=== PATIENT | female | born 1960 | race Caucasian/White ===

== ENCOUNTER 2016-07-13 20:37 | Inpatient (IN) | payer OTHER ==
[~2016-07-13] VITALS: Ht 152.4 cm; Wt 50.0 kg
[~2016-07-13 20:37] MED LIST: BENZ-88 PO; BUPR100T8 PO; HYDR25CA PO; LSN25 PO; MAGN400T6 PO; METF-841 PO; NVLGI7030 SC; RANI300T2 PO; RISP4TAB2 PO; SODI1TAB PO; TPRSR/25 PO
[2016-07-13] MEDS ORDERED: SODIUM CHLORIDE 0.9% 1000ML 1,000 ML IV STA (20:57)
--- NOTE | 2016-07-13 21:02 | EMERGENCY ROOM VISIT NOTE ---
History Report prepared by Jeanne: Navin Tirado Under the Supervision of: Dr. Flaco Servin M.D. First contact with patient: 20:51 Chief Complaint: HYPERGLYCEMIA Stated Complaint: FELL,SUGAR UP, YESTERDAY History of Present Illness The patient is a 56 year old female who presents to the Emergency Room following a falling episode that occurred shortly prior to arrival. The patient states that she is currently experiencing pain in her head and notes that she hit her head during her fall. Her blood sugar was very high today as well. 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 Review of Systems See HPI for pertinent positives & negatives. A total of 10 systems reviewed and were otherwise negative. Past Medical & Surgical Medical Problems: (1) Benign hypertension (2) Bipolar disorder (3) Diabetes mellitus (4) History of vertigo (5) Parkinson's disease (6) psychiatric problems Family History Diabetes mellitus Hypertension Social History Smoking Status: Never Smoker Alcohol Use: none Drug Use: none Marital Status: Housing Status: lives with significant other Occupation Status: unemployed, disabled Current/Historical Medications Scheduled Benztropine Mesylate (Benztropine Mesylate), 1 MG PO HS Bupropion (Wellbutrin Sr), 100 MG PO DAILY Insulin Aspart 70/30 (Novolog Mix 70/30), 14 UNITS SC QAM Insulin Aspart 70/30 (Novolog Mix 70/30), 7 UNITS SC QPM Lisinopril (Lisinopril), 2.5 MG PO BID Magnesium Oxide (Mag-Ox), 800 MG PO TID Metformin HCl (Metformin HCl ER), 1,000 MG PO BID Metoprolol Succinate (Metoprolol Succinate ER), 25 MG PO BID Ranitidine Hcl (Zantac), 300 MG PO BID Sodium Chloride (Sodium Chloride), 1 GM PO BID Scheduled PRN Hydroxyzine Pamoate (Vistaril), 25 MG PO BID PRN for Anxiety Allergies Coded Allergies: Prochlorperazine (Verified Allergy, Mild, 07/13/16) Physical Exam Vital Signs Date Time Temp Pulse Resp B/P Pulse Ox O2 Delivery O2 Flow Rate FiO2 07/13/16 23:01 86 25 131/66 96 Room Air 07/13/16 22:37 77 21 96 Room Air 07/13/16 22:07 125 18 07/13/16 21:37 82 24 96 Room Air 07/13/16 21:14 86 25 134/81 96 Room Air 07/13/16 21:10 96 Room Air 07/13/16 21:07 86 07/13/16 20:41 36.5 111 18 134/81 98 Room Air Physical Exam GENERAL: Patient is chronically debilitated. HEAD: Normocephalic atraumatic EYES: Ocular movements intact pupils equal and react to light OROPHARYNX mucous membranes are moist no exudates present no erythema or edema present NECK: Supple no nuchal rigidity CHEST: Good equal expansion LUNGS: Clear and equal to auscultation CARDIAC: Normal S1 and S2 ABDOMEN: Soft nontender no guarding BACK: No CVA tenderness EXTREMITIES: No pain upon palpation normal muscle strength in all groups no clubbing cyanosis or edema NEURO: Patient is following commands is answering questions appropriately. Alert and oriented x3 Cranial Nerves 2-12 grossly intact Medical Decision & Procedures ER Provider Diagnostic Interpretation: Radiology results as stated below per my review and radiologist interpretation: SINGLE VIEW CHEST CLINICAL HISTORY: Fall. FINDINGS: An AP, portable, upright chest radiograph is compared to study dated 11/09/2015. The examination is degraded by portable technique and patient rotation. The cardiomediastinal silhouette is unremarkable. There is minimal bibasilar atelectasis. The lungs and pleural spaces are otherwise clear. No pneumothorax is seen. The skeletal structures appear osteopenic. The bony thorax is grossly intact. Calcified granulomas are noted in the left upper quadrant the abdomen. IMPRESSION: No active disease in the chest. Electronically signed by: Dell Mazariegos M.D. 07/13/2016 10:09 PM Dictated Date/Time: 07/13/2016 10:[address] SCAN OF THE BRAIN WITHOUT IV CONTRAST CLINICAL HISTORY: Fall. Change in mental status. COMPARISON STUDY: CT of the brain dated 09/17/2014. TECHNIQUE: Unenhanced axial CT scan of the brain is performed from the vertex to the skull base. Automated dose control exposure was utilized. The skull base was scanned twice due to motion artifact. CT DOSE: 691.05 mGy.cm FINDINGS: Brain parenchyma: The brain parenchyma is normal in appearance. There is no hemorrhage, mass effect, or evidence of acute territorial ischemia by CT criteria. Jack-white matter is preserved. No extra-axial fluid collection is seen. Ventricles, sulci, cisterns: Normal in configuration. Intracranial vasculature: The visualized intracranial vasculature at the skull base is normal in appearance. Calvarium: There is no depressed calvarial fracture. Soft tissues: There is a left posterior parietal scalp contusion/hematoma. Sinuses and mastoids: The visualized paranasal sinuses are clear. The mastoid air cells are well pneumatized. Orbits: The bony orbits are grossly intact. IMPRESSION: 1. No acute intracranial abnormality. 2. Left posterior parietal scalp contusion/hematoma. No depressed calvarial fracture is seen. Electronically signed by: Dell Mazariegos M.D. 07/13/2016 10:01 PM Dictated Date/Time: 07/13/2016 9:58 PM SINGLE VIEW PELVIS CLINICAL HISTORY: Fall. FINDINGS: An AP pelvic radiograph is correlated with pelvic CT dated 06/07/2015. The skeletal structures are osteopenic. There is no radiographic evidence of fracture in the hips or bony pelvis. Only minimal degenerative change is seen in the hips. Degenerative sclerosis is noted in the sacroiliac joints. Enthesophytes arise from the anterior superior iliac spine bilaterally. The overlying soft tissues are within normal limits. There is a nonobstructed abdominal bowel gas pattern. IMPRESSION: There is no radiographic evidence of fracture in the hips or bony pelvis. Electronically signed by: Dell Mazariegos M.D. 07/13/2016 10:11 PM Dictated Date/Time: 07/13/2016 10:09 PM Laboratory Results 07/13/16 21:11 Red Blood Count 4.05, Mean Corpuscular Volume 86.2, Mean Corpuscular Hemoglobin 30.9, Mean Corpuscular Hemoglobin Concent 35.8, Mean Platelet Volume 10.0, Neutrophils (%) (Auto) 61.4, Lymphocytes (%) (Auto) 26.5, Monocytes (%) (Auto) 8.9, Eosinophils (%) (Auto) 2.8, Basophils (%) (Auto) 0.3, Neutrophils # (Auto) 5.29, Lymphocytes # (Auto) 2.28, Monocytes # (Auto) 0.77, Eosinophils # (Auto) 0.24, Basophils # (Auto) 0.03 07/13/16 21:11 Test 07/13/16 20:57 07/13/16 21:11 07/13/16 21:36 Bedside Glucose 339 mg/dl (70-90) White Blood Count 8.62 K/uL (4.8-10.8) Red Blood Count 4.05 M/uL (4.2-5.4) Hemoglobin 12.5 g/dL (12.0-16.0) Hematocrit 34.9 % (37-47) Mean Corpuscular Volume 86.2 fL (80-100) Mean Corpuscular Hemoglobin 30.9 pg (25-34) Mean Corpuscular Hemoglobin Concent 35.8 g/dl (32-36) Platelet Count 302 K/uL (130-400) Mean Platelet Volume 10.0 fL (7.4-10.4) Neutrophils (%) (Auto) 61.4 % Lymphocytes (%) (Auto) 26.5 % Monocytes (%) (Auto) 8.9 % Eosinophils (%) (Auto) 2.8 % Basophils (%) (Auto) 0.3 % Neutrophils # (Auto) 5.29 K/uL (1.4-6.5) Lymphocytes # (Auto) 2.28 K/uL (1.2-3.4) Monocytes # (Auto) 0.77 K/uL (0.11-0.59) Eosinophils # (Auto) 0.24 K/uL (0-0.5) Basophils # (Auto) 0.03 K/uL (0-0.2) RDW Standard Deviation 41.5 fL (36.4-46.3) RDW Coefficient of Variation 12.9 % (11.5-14.5) Immature Granulocyte % (Auto) 0.1 % Immature Granulocyte # (Auto) 0.01 K/uL (0.00-0.02) Venous Blood pH 7.50 (7.36-7.41) Venous Blood Partial Pressure CO2 48 mmHg (38.0-50.0) Venous Blood Partial Pressure O2 24 mmHg Venous Blood HCO3 37 mmol/L Venous Blood Oxygen Saturation < 60.0 % Venous Blood Base Excess 12.0 mmol/L Estimated GFR () 48.9 Estimated GFR (Non- 42.2 BUN/Creatinine Ratio 19.9 (10-20) Calcium Level 9.0 mg/dl (8.5-10.1) Total Bilirubin 0.4 mg/dl (0.2-1) Direct Bilirubin 0.1 mg/dl (0-0.2) Aspartate Amino Transf (AST/SGOT) 25 U/L (15-37) Alanine Aminotransferase (ALT/SGPT) 29 U/L (12-78) Alkaline Phosphatase 57 U/L (45-117) Total Creatine Kinase 255 U/L (26-192) Creatine Kinase MB 1.4 ng/ml (0.5-3.6) Creatine Kinase MB Ratio 0.5 (0-3.0) Troponin I < 0.015 ng/ml (0-0.045) Total Protein 6.5 gm/dl (6.4-8.2) Albumin 3.4 gm/dl (3.4-5.0) Beta-Hydroxybutyric Acid 1.01 mg/dL (0.2-2.81) Thyroid Stimulating Hormone (TSH) 2.220 uIu/ml (0.300-4.500) Bedside Hemoglobin 13.6 g/dl (12.0-16.0) Bedside Hematocrit 40 % (37-47) Bedside Sodium 121 mEq/L (135-144) Bedside Potassium 4.5 mEq/L (3.3-5.0) Bedside Chloride 80 mEq/L (101-112) Bedside Total CO2 29 mEq/l (24-31) Anion Gap 17.0 mmol/L (16-25) Bedside Blood Urea Nitrogen 28 mg/dl (7-18) Bedside Creatinine 1.2 mg/dl (0.6-1.3) Bedside Glucose (other) 353 mg/dl (70-99) Bedside Ionized Calcium (Bailee) 1.10 mmol/l (1.12-1.32) Labs reviewed by ED physician. Medications Administered Medications (Trade) Dose Ordered Sig/Jeremias Route Start Time Stop Time Status Last Admin Dose Admin Sodium Chloride (Nss 1000ml) 1,000 ml @ 999 mls/hr Q1H1M STAT IV 07/13/16 20:57 07/13/16 21:57 DC 07/13/16 22:13 999 MLS/HR Ondansetron HCl (Zofran Inj) 4 mg STK-MED ONCE .ROUTE 07/13/16 22:15 07/13/16 22:16 DC 07/13/16 22:13 4 MG ECG Rate (beats per minute): 82 Rhythm: normal sinus Findings: no acute ischemic change, no ectopy ED Course 2053: Past medical records reviewed. The patient was evaluated in room B9. A complete history and physical examination was performed. 2056: Ordered Sodium Chloride 1000 mL @ 999 mL/hr IV. 2200: Ordered Regular Human Insulin 10 units IV. 2214: Ordered Zofran 4 mg. 2215: I placed a page for Dr. Mcgovern at this time. 2219: I discussed the case with Dr. Mcgovern at this time, he will observe the patient for further treatment. Medical Decision This is a 56-year-old female who presents emergency department unable to care for herself. The patient's yesterday from a massive GI bleed. The house was covered in blood and dark stool. The patient has a third grade level of comprehension and obviously has not bathed and months. She has not been taking her medications. Her family has brought her here for placement. Her glucose is elevated therefore she was given insulin and fluid in the emergency department. I did discuss the case with the hospitalist service who agreed to admit the patient. Patient and family were in agreement with the treatment plan. Consults Time Called: 2214 Consulting Physician: Dr. Mcgovern - [facility] [place] Hospitalist Returned Call: [phone] I discussed the case with Dr. Mcgovern at this time, he will observe the patient for further treatment. Impression Primary Impression: Weakness generalized Additional Impression: Hyperglycemia Scribe Attestation The scribe's documentation has been prepared under my direction and personally reviewed by me in its entirety. I confirm that the note above accurately reflects all work, treatment, procedures, and medical decision making performed by me. Departure Information Dispostion Being Evaluated By Hospitalist Referrals Paulino Becerril M.D. (PCP) Patient Instructions [facility] Problem Qualifiers
[2016-07-13 21:24] LABS: BASO % 0.3 %; BASO ABS # 0.03 K/uL (0-0.2); COMPLETE YES; EOS % 2.8 %; HEMATOCRIT 34.9 % (37-47); IG% 0.1 %; LYMPH % 26.5 %; LYMPH ABS # 2.28 K/uL (1.2-3.4); MEAN CELL VOLUME 86.2 fL (80-100); MEAN CORPUSCULAR HEMOGLOBIN 30.9 pg (25-34); MEAN CORPUSCULAR HGB CONC 35.8 g/dl (32-36); MONO % 8.9 %; NEUT % 61.4 %; PLATELET COUNT 302 K/uL (130-400); RED BLOOD COUNT 4.05 M/uL (4.2-5.4); WHITE BLOOD COUNT 8.62 K/uL (4.8-10.8)
[2016-07-13 21:32] LABS: VENOUS BLOOD GAS PCO2 48 mmHg (38.0-50.0); VENOUS BLOOD GAS PO2 24 mmHg
[2016-07-13 21:34] LABS: VEN BLD GAS O2 SATURATION < 60.0 %
[2016-07-13 21:41] LABS: ALT/SGPT 29 U/L (12-78); AST/SGOT 25 U/L (15-37); BLOOD UREA NITROGEN 28 mg/dl (7-18); BUN/CREATININE RATIO 19.9 (10-20); CARBON DIOXIDE 30 mmol/L (21-32); CHLORIDE 84 mmol/L (98-107); GLUCOSE 349 mg/dl (70-99); POTASSIUM 4.4 mmol/L (3.5-5.1); SODIUM 121 mmol/L (136-145)
[2016-07-13 21:51] LABS: ISTAT CREATININE 1.2 mg/dl (0.6-1.3); ISTAT HEMOGLOBIN 13.6 g/dl (12.0-16.0); ISTAT IONIZED CALCIUM 1.1 mmol/l (1.12-1.32)
[2016-07-13 21:51] LABS: ALKALINE PHOSPHATASE 57 U/L (45-117); BETA-HYDROXYBUTYRATE 1.04 mg/dL (0.2-2.81); CKMB/CK RATIO 0.5 (0-3.0)
[2016-07-13] MEDS ORDERED: NovoLIN-R INSULIN PER UNIT CHARGE IV STA (22:01)
--- NOTE | 2016-07-13 22:03 | DIAGNOSTIC IMAGING REPORT ---
CT SCAN OF THE BRAIN WITHOUT IV CONTRAST CLINICAL HISTORY: Fall. Change in mental status. COMPARISON STUDY: CT of the brain dated 09/17/2014. TECHNIQUE: Unenhanced axial CT scan of the brain is performed from the vertex to the skull base. Automated dose control exposure was utilized. The skull base was scanned twice due to motion artifact. CT DOSE: 691.05 mGy.cm FINDINGS: Brain parenchyma: The brain parenchyma is normal in appearance. There is no hemorrhage, mass effect, or evidence of acute territorial ischemia by CT criteria. Jack-white matter is preserved. No extra-axial fluid collection is seen. Ventricles, sulci, cisterns: Normal in configuration. Intracranial vasculature: The visualized intracranial vasculature at the skull base is normal in appearance. Calvarium: There is no depressed calvarial fracture. Soft tissues: There is a left posterior parietal scalp contusion/hematoma. Sinuses and mastoids: The visualized paranasal sinuses are clear. The mastoid air cells are well pneumatized. Orbits: The bony orbits are grossly intact. IMPRESSION: 1. No acute intracranial abnormality. 2. Left posterior parietal scalp contusion/hematoma. No depressed calvarial fracture is seen. Electronically signed by: Dell Mazariegos M.D. 07/13/2016 10:01 PM Dictated Date/Time: 07/13/2016 9:58 PM
--- NOTE | 2016-07-13 22:11 | DIAGNOSTIC IMAGING REPORT ---
SINGLE VIEW CHEST CLINICAL HISTORY: Fall. FINDINGS: An AP, portable, upright chest radiograph is compared to study dated 11/09/2015. The examination is degraded by portable technique and patient rotation. The cardiomediastinal silhouette is unremarkable. There is minimal bibasilar atelectasis. The lungs and pleural spaces are otherwise clear. No pneumothorax is seen. The skeletal structures appear osteopenic. The bony thorax is grossly intact. Calcified granulomas are noted in the left upper quadrant the abdomen. IMPRESSION: No active disease in the chest. Electronically signed by: Dell Mazariegos M.D. 07/13/2016 10:09 PM Dictated Date/Time: 07/13/2016 10:08 PM
--- NOTE | 2016-07-13 22:13 | DIAGNOSTIC IMAGING REPORT ---
SINGLE VIEW PELVIS CLINICAL HISTORY: Fall. FINDINGS: An AP pelvic radiograph is correlated with pelvic CT dated 06/07/2015. The skeletal structures are osteopenic. There is no radiographic evidence of fracture in the hips or bony pelvis. Only minimal degenerative change is seen in the hips. Degenerative sclerosis is noted in the sacroiliac joints. Enthesophytes arise from the anterior superior iliac spine bilaterally. The overlying soft tissues are within normal limits. There is a nonobstructed abdominal bowel gas pattern. IMPRESSION: There is no radiographic evidence of fracture in the hips or bony pelvis. Electronically signed by: Dell Mazariegos M.D. 07/13/2016 10:11 PM Dictated Date/Time: 07/13/2016 10:09 PM
[2016-07-13] MEDS ORDERED: ONDANSETRON INJ 2 MG/ML 2 ML VIAL ONE (22:15)
[2016-07-13] MEDS ORDERED: INSULIN REGULAR 10 UNITS in SYRINGE 9.9 ML IV ONE (23:00)
[2016-07-13] MEDS ORDERED: MAGNESIUM HYDROXIDE SUSP 30 ML UDC PO PRN (23:15)
[2016-07-13] MEDS ORDERED: ALUMINUM/MAGNESIUM/SIMETH (MAALOX MAX) 30 ML UDC PO PRN (23:15)
[2016-07-13] MEDS ORDERED: ACETAMINOPHEN 325 MG TAB PO PRN (23:15)
--- NOTE | 2016-07-13 23:46 | History and Physical ---
History & Physical Date & Time of Service: Jul 13, 2016 at 23:34 Chief Complaint: Fell,Sugar Up, Yesterday Primary Care Physician: Paulino Becerril M.D. History of Present Illness Source: patient 56-year-old female with past medical history of hypertension, diabetes, bipolar disorder, Parkinson's disease, other psychiatric issues presented to the ER after she had apparently sustained a fall and hit her head to a concrete floor. She states that her headache is better now but she still feels nauseous and had 1 episode of vomiting. Denies any blurriness of vision, diplopia, weakness, numbness or tingling. She states that she had felt dizzy prior to the fall but can't remember if she had lost consciousness. She denies any chest pain, palpitations, shortness of breath, abdominal pain, dysuria. Denies any pain or restricted mobility of her extremities. Past Medical/Surgical History Medical Problems: (1) Benign hypertension Status: Chronic (2) Bipolar disorder Status: Chronic (3) Diabetes mellitus Status: Chronic (4) History of vertigo Status: Chronic (5) Parkinson's disease Status: Chronic Family History Diabetes mellitus Hypertension Social History Smoking Status: Never Smoker Drug Use: none Marital Status: Housing status: lives with family, other Occupational Status: unemployed, disabled Immunizations History of Influenza Vaccine: Yes Influenza Vaccine Date: Jan 28, 2013 History of Tetanus Vaccine?: Unknown History of Pneumococcal: Unknown Pneumococcal Date: Feb 07, 2013 History of Hepatitis B Vaccine: Unknown Multi-Drug Resistant Organisms History of MDRO: No Allergies Coded Allergies: Prochlorperazine (Verified Allergy, Mild, 07/13/16) Home Medications Scheduled Benztropine Mesylate (Benztropine Mesylate), 1 MG PO HS Bupropion (Wellbutrin Sr), 100 MG PO DAILY Insulin Aspart 70/30 (Novolog Mix 70/30), 14 UNITS SC QAM Insulin Aspart 70/30 (Novolog Mix 70/30), 7 UNITS SC QPM Lisinopril (Lisinopril), 2.5 MG PO BID Magnesium Oxide (Mag-Ox), 800 MG PO TID Metformin HCl (Metformin HCl ER), 1,000 MG PO BID Metoprolol Succinate (Metoprolol Succinate ER), 25 MG PO BID Ranitidine Hcl (Zantac), 300 MG PO BID Sodium Chloride (Sodium Chloride), 1 GM PO BID Scheduled PRN Hydroxyzine Pamoate (Vistaril), 25 MG PO BID PRN for Anxiety Review of Systems Constitutional: No chills, No fever Eyes: No diplopia, No worsening of vision ENT: No hearing loss Respiratory: No cough, No shortness of breath, No sputum Cardiovascular: No chest pain Abdomen: + nausea, + vomiting, No pain Musculoskeletal: No joint pain Genitourinary - Female: No dysuria, No urinary frequency Neurologic: No numbness/tingling, No weakness Physical Exam Vital Signs Date Time Temp Pulse Resp B/P Pulse Ox O2 Delivery O2 Flow Rate FiO2 07/13/16 23:01 86 25 131/66 96 Room Air 07/13/16 22:37 77 21 96 Room Air 07/13/16 22:07 125 18 07/13/16 21:37 82 24 96 Room Air 07/13/16 21:14 86 25 134/81 96 Room Air 07/13/16 21:10 96 Room Air 07/13/16 21:07 86 07/13/16 20:41 36.5 111 18 134/81 98 Room Air General Appearance: WD/WN, no apparent distress Head: + pertinent finding (left parietal hematoma) Eyes: normal inspection ENT: normal ENT inspection, hearing grossly normal Neck: supple Respiratory/Chest: chest non-tender, lungs clear, normal breath sounds, no respiratory distress, no accessory muscle use Cardiovascular: regular rate, rhythm Abdomen/GI: normal bowel sounds, + distended, + pertinent finding (transverse scar) Extremities/Musculoskelatal: normal inspection, no pedal edema Neurologic/Psych: alert, normal mood/affect, oriented x 3 Skin: normal color Diagnostics Laboratory Results Results Past 24 Hours Test 07/13/16 20:57 07/13/16 21:11 07/13/16 21:36 Range/Units Bedside Glucose 339 70-90 mg/dl White Blood Count 8.62 4.8-10.8 K/uL Red Blood Count 4.05 4.2-5.4 M/uL Hemoglobin 12.5 12.0-16.0 g/dL Hematocrit 34.9 37-47 % Mean Corpuscular Volume 86.2 80-100 fL Mean Corpuscular Hemoglobin 30.9 25-34 pg Mean Corpuscular Hemoglobin Concent 35.8 32-36 g/dl Platelet Count 302 130-400 K/uL Mean Platelet Volume 10.0 7.4-10.4 fL Neutrophils (%) (Auto) 61.4 % Lymphocytes (%) (Auto) 26.5 % Monocytes (%) (Auto) 8.9 % Eosinophils (%) (Auto) 2.8 % Basophils (%) (Auto) 0.3 % Neutrophils # (Auto) 5.29 1.4-6.5 K/uL Lymphocytes # (Auto) 2.28 1.2-3.4 K/uL Monocytes # (Auto) 0.77 0.11-0.59 K/uL Eosinophils # (Auto) 0.24 0-0.5 K/uL Basophils # (Auto) 0.03 0-0.2 K/uL RDW Standard Deviation 41.5 36.4-46.3 fL RDW Coefficient of Variation 12.9 11.5-14.5 % Immature Granulocyte % (Auto) 0.1 % Immature Granulocyte # (Auto) 0.01 0.00-0.02 K/uL Venous Blood pH 7.50 7.36-7.41 Venous Blood Partial Pressure CO2 48 38.0-50.0 mmHg Venous Blood Partial Pressure O2 24 mmHg Venous Blood HCO3 37 mmol/L Venous Blood Oxygen Saturation < 60.0 % Venous Blood Base Excess 12.0 mmol/L Sodium Level 121 136-145 mmol/L Potassium Level 4.4 3.5-5.1 mmol/L Chloride Level 84 98-107 mmol/L Carbon Dioxide Level 30 21-32 mmol/L Anion Gap 7.0 17.0 16-25 mmol/L Blood Urea Nitrogen 28 7-18 mg/dl Creatinine 1.40 0.60-1.20 mg/dl Estimated GFR () 48.9 Estimated GFR (Non- 42.2 BUN/Creatinine Ratio 19.9 10-20 Random Glucose 349 70-99 mg/dl Calcium Level 9.0 8.5-10.1 mg/dl Total Bilirubin 0.4 0.2-1 mg/dl Direct Bilirubin 0.1 0-0.2 mg/dl Aspartate Amino Transf (AST/SGOT) 25 15-37 U/L Alanine Aminotransferase (ALT/SGPT) 29 12-78 U/L Alkaline Phosphatase 57 45-117 U/L Total Creatine Kinase 255 26-192 U/L Creatine Kinase MB 1.4 0.5-3.6 ng/ml Creatine Kinase MB Ratio 0.5 0-3.0 Troponin I < 0.015 0-0.045 ng/ml Total Protein 6.5 6.4-8.2 gm/dl Albumin 3.4 3.4-5.0 gm/dl Beta-Hydroxybutyric Acid 1.01 0.2-2.81 mg/dL Thyroid Stimulating Hormone (TSH) 2.220 0.300-4.500 uIu/ml Bedside Hemoglobin 13.6 12.0-16.0 g/dl Bedside Hematocrit 40 37-47 % Bedside Sodium 121 135-144 mEq/L Bedside Potassium 4.5 3.3-5.0 mEq/L Bedside Chloride 80 101-112 mEq/L Bedside Total CO2 29 24-31 mEq/l Bedside Blood Urea Nitrogen 28 7-18 mg/dl Bedside Creatinine 1.2 0.6-1.3 mg/dl Bedside Glucose (other) 353 70-99 mg/dl Bedside Ionized Calcium (Bailee) 1.10 1.12-1.32 mmol/l Diagnostic Radiology [~ rep ct add3]] SINGLE VIEW PELVIS CLINICAL HISTORY: Fall. FINDINGS: An AP pelvic radiograph is correlated with pelvic CT dated 06/07/2015. The skeletal structures are osteopenic. There is no radiographic evidence of fracture in the hips or bony pelvis. Only minimal degenerative change is seen in the hips. Degenerative sclerosis is noted in the sacroiliac joints. Enthesophytes arise from the anterior superior iliac spine bilaterally. The overlying soft tissues are within normal limits. There is a nonobstructed abdominal bowel gas pattern. IMPRESSION: There is no radiographic evidence of fracture in the hips or bony pelvis. ] SINGLE VIEW CHEST CLINICAL HISTORY: Fall. FINDINGS: An AP, portable, upright chest radiograph is compared to study dated 11/09/2015. The examination is degraded by portable technique and patient rotation. The cardiomediastinal silhouette is unremarkable. There is minimal bibasilar atelectasis. The lungs and pleural spaces are otherwise clear. No pneumothorax is seen. The skeletal structures appear osteopenic. The bony thorax is grossly intact. Calcified granulomas are noted in the left upper quadrant the abdomen. IMPRESSION: No active disease in the chest. [~ rep ct add3]] CT SCAN OF THE BRAIN WITHOUT IV CONTRAST CLINICAL HISTORY: Fall. Change in mental status. COMPARISON STUDY: CT of the brain dated 09/17/2014. TECHNIQUE: Unenhanced axial CT scan of the brain is performed from the vertex to the skull base. Automated dose control exposure was utilized. The skull base was scanned twice due to motion artifact. CT DOSE: 691.05 mGy.cm FINDINGS: Brain parenchyma: The brain parenchyma is normal in appearance. There is no hemorrhage, mass effect, or evidence of acute territorial ischemia by CT criteria. Jack-white matter is preserved. No extra-axial fluid collection is seen. Ventricles, sulci, cisterns: Normal in configuration. Intracranial vasculature: The visualized intracranial vasculature at the skull base is normal in appearance. Calvarium: There is no depressed calvarial fracture. Soft tissues: There is a left posterior parietal scalp contusion/hematoma. Sinuses and mastoids: The visualized paranasal sinuses are clear. The mastoid air cells are well pneumatized. Orbits: The bony orbits are grossly intact. IMPRESSION: 1. No acute intracranial abnormality. 2. Left posterior parietal scalp contusion/hematoma. No depressed calvarial fracture is seen. Impression Assessment and Plan Documented By: Quintin Mcgovern 56-year-old female with past medical history of hypertension, diabetes, bipolar disorder, Parkinson's disease, chronic hyponatremia, hypomagnesemia, other psychiatric issues presented to the ER after she had apparently sustained a fall and hit her head to a concrete floor. Fall: - Chest x-ray: No active disease in the chest. - Head CT: 1. No acute intracranial abnormality. 2. Left posterior parietal scalp contusion/hematoma. No depressed calvarial fracture is seen. - Pelvis x-ray: There is no radiographic evidence of fracture in the hips or bony pelvis. - Troponins negative - EKG: Within normal limits - Found to be hyperglycemic Hyperglycemia: - Usually takes NovoLog 70/30 14 units QAM and 7 units QPM and metformin thousand milligrams twice a day - Blood sugar at 339 - Sliding-scale insulin ordered - Monitor blood sugars - Hemoglobin A1c currently pending Chronic Hyponatremia: - Sodium at 121, corrected sodium 126 - Continue NSS and NaCl tabs 1 g twice a day Hypertension: - continue lisinopril 2.5 mg twice a day Acute kidney injury: Creatinine at 1.4 - Likely secondary to dehydration - Monitor creatinine Bipolar disorder - Continue Wellbutrin, Risperdal Parkinson disease: -Continue benztropine DVT prophylaxis: SCDs Full code Disposition: Admitted to telemetry Social : Patient's who is 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 House was apparently covered in dark stool and blood. Mental status at third-grade level of cognition. She will require placement. health services director consult Resident Physician Supervision Note: Pt seen/examined independently. I discussed the case with the resident and agree with the findings and plan as documented in the note. Any exceptions or clarifications are listed here: 56 y/o F with Hx MR - recently - was primary metal treater. Presents following a fall however per EMS and family, she is incapable of caring for herself and her house was in an uninhabitable state. She was hyperglycemic and dehydrated with ARF - possibly due to inability to comply with meds. O/E AAO x 2 S1,2 R CTA NT, ND No CCE P: Correct Glu Aggressive IVF Consult social work for placement Level of Care Telemetry Resuscitation Status FULL RESUSCITATION VTE Prophylaxis VTE Risk Assessment Done? Y/N: Yes Risk Level: Moderate Given or contraindicated: SCD's Resident Tracking Resident Involvement: Resident Care Provided Care Provided: Adult Hospital Medicine
[2016-07-14] VITALS (9 sets, daily range): BP systolic 102–151; BP diastolic 58–108; PULSE 77–106; TEMP 36.8–37.4; O2SAT 92–95; Ht 152.4 cm; Wt 50.0 kg
[2016-07-14] MEDS ORDERED: GLUCOSE 40% GEL 15 GM TUBE PO PRN (00:15)
[2016-07-14] MEDS ORDERED: GLUCAGON FOR INJ 1 MG VIAL SQ PRN (00:15)
[2016-07-14] MEDS ORDERED: GLUCOSE 10 TABS/TUBE PO PRN (00:15)
[2016-07-14] MEDS ORDERED: DEXTROSE 50% 50 ML SYR IV PRN (00:15)
[2016-07-14] MEDS ORDERED: INSULIN GLARGINE SOLOSTAR 100 UNITS/ML 3 ML PEN SC ONE ×2 (01:00→09:00)
[2016-07-14] MEDS ORDERED: hydrOXYzine HCL 25 MG TAB PO PRN (01:00)
[2016-07-14] MEDS ORDERED: PHARMACY GLYCEMIC MGMT CONSULT PRN (01:00)
[2016-07-14 01:04] LABS: MAGNESIUM 1.9 mg/dl (1.8-2.4)
[2016-07-14] MEDS: SODIUM CHLORIDE 0.9% 1000ML 1,000 ML IV SCH ×3 (01:08→21:19)
[2016-07-14] MEDS: ONDANSETRON INJ 2 MG/ML 2 ML VIAL IV PRN ×2 (02:32→13:02)
[2016-07-14] MEDS: INSULIN ASPART 100 UNITS/ML 3 ML PEN SC SCH ×5 (02:51→21:18)
[2016-07-14 06:05] LABS: BASO % 0.3 %; BASO ABS # 0.03 K/uL (0-0.2); COMPLETE YES; EOS % 5.1 %; HEMATOCRIT 32.8 % (37-47); IG% 0.2 %; LYMPH % 19.7 %; LYMPH ABS # 1.98 K/uL (1.2-3.4); MEAN CELL VOLUME 87.5 fL (80-100); MEAN CORPUSCULAR HEMOGLOBIN 32.8 pg (25-34); MEAN CORPUSCULAR HGB CONC 37.5 g/dl (32-36); MEAN PLATELET VOLUME 10.6 fL (7.4-10.4); MONO % 8.1 %; NEUT % 66.6 %; PLATELET COUNT 294 K/uL (130-400); RED BLOOD COUNT 3.75 M/uL (4.2-5.4); WHITE BLOOD COUNT 10.04 K/uL (4.8-10.8)
[2016-07-14 06:30] LABS: BUN/CREATININE RATIO 23.1 (10-20); CALCIUM 8.4 mg/dl (8.5-10.1); CREATININE 1.1 mg/dl (0.60-1.20); MAGNESIUM 1.8 mg/dl (1.8-2.4)
[2016-07-14] MEDS: NYSTATIN OINT 15 GM TUBE EXT SCH ×3 (07:35→15:23)
[2016-07-14] MEDS: SODIUM CHLORIDE 1 GM TAB PO SCH ×2 (07:36→21:00)
[2016-07-14] MEDS: RANITIDINE HCL 150 MG TAB PO SCH ×2 (07:36→20:59)
[2016-07-14] MEDS: MAGNESIUM OXIDE 400 MG TAB PO SCH ×3 (07:36→20:59)
[2016-07-14] MEDS: BuPROPion SR 100 MG TABCR PO SCH (07:37)
[2016-07-14] MEDS: METOPROLOL SUCC 25MG EXT REL TAB PO SCH ×2 (07:38→21:00)
[2016-07-14 08:22] LABS: ESTIMATED AVERAGE GLUCOSE 237 mg/dl; HA1C FLAG Normal (Normal)
[2016-07-14] MEDS: LISINOPRIL 2.5 MG TAB PO SCH ×2 (10:10→21:00)
--- NOTE | 2016-07-14 14:46 | Pharmacy Progress Note ---
Glycemic Control Intl Consult Date of Service Jul 14, 2016. Scope Glycemic Pharmacist consulted by Dr Mejias on 07/14/2016 for glycemic control and to write orders per [facility] inpatient glycemic control protocol Objective Weight (Kilograms): 49.600 Accuchecks BSG (last 24hrs): Test 07/13/16 20:57 07/13/16 21:11 07/14/16 00:55 07/14/16 02:49 Bedside Glucose 339 mg/dl (70-90) 161 mg/dl (70-90) 157 mg/dl (70-90) Random Glucose 349 mg/dl (70-99) Test 07/14/16 05:25 07/14/16 06:46 Random Glucose 202 mg/dl (70-99) Bedside Glucose 198 mg/dl (70-90) Laboratory Data (last 24hrs) Test 07/13/16 21:11 07/13/16 21:36 07/14/16 05:25 Anion Gap 7.0 mmol/L 17.0 mmol/L 9.0 mmol/L BUN/Creatinine Ratio 19.9 23.1 Blood Urea Nitrogen 28 mg/dl 25 mg/dl Creatinine 1.40 mg/dl 1.10 mg/dl Hemoglobin A1c 9.9 % Potassium Level 4.4 mmol/L 4.0 mmol/L Sodium Level 121 mmol/L 128 mmol/L White Blood Count 8.62 K/uL 10.04 K/uL Red Blood Count 4.05 M/uL 3.75 M/uL Hemoglobin 12.5 g/dL 12.3 g/dL Hematocrit 34.9 % 32.8 % Mean Corpuscular Volume 86.2 fL 87.5 fL Mean Corpuscular Hemoglobin 30.9 pg 32.8 pg Mean Corpuscular Hemoglobin Concent 35.8 g/dl 37.5 g/dl Platelet Count 302 K/uL 294 K/uL Mean Platelet Volume 10.0 fL 10.6 fL Neutrophils (%) (Auto) 61.4 % 66.6 % Lymphocytes (%) (Auto) 26.5 % 19.7 % Monocytes (%) (Auto) 8.9 % 8.1 % Eosinophils (%) (Auto) 2.8 % 5.1 % Basophils (%) (Auto) 0.3 % 0.3 % Neutrophils # (Auto) 5.29 K/uL 6.69 K/uL Lymphocytes # (Auto) 2.28 K/uL 1.98 K/uL Monocytes # (Auto) 0.77 K/uL 0.81 K/uL Eosinophils # (Auto) 0.24 K/uL 0.51 K/uL Basophils # (Auto) 0.03 K/uL 0.03 K/uL HbA1c Test 07/13/16 21:11 Hemoglobin A1c 9.9 % (4.5-5.6) H Recent Pertinent Medications Outpatient Anti-diabetic Regimen: * Novolog 70/30 14 units in AM and 7 units in PM (unsure when last taken) Risk Factors for Insulin Resistance: * Diet: type 2 diabetic diet Assessment & Plan ASSESSMENT: * ADA & AACE recommend a goal blood sugar range 140-180 mg/dl for the majority of critically ill & non-critically ill patients. However, more stringent targets may be selected in individual cases. 07/14/2016 * Ms Jimenez was admitted overnight after a fall plus emesis. The patient is a poor historian and therefore it is unknown when she last took her insulin or what dose was taken. * She received a 1 time dose of Regular insulin 10 units IV around 2300 and then Lantus 5 units at 0115. Her blood sugars have decreased nicely from 349 mg/ dL on admission to 198 mg/dL this morning. * The patient's blood sugars appear reasonably controlled as an outpatient therefore will give Lantus 5 units x 1 to make Lantus 10 units this morning and start Lantus 10 units every morning (mimics a total basal dose of 15 units daily with a small reduction for hospital admission) plus a Lantus dose of 0-5 units qHS if necessary. A stricter carbohydrate ratio and correction factor are being utilized to see how the patient responds while hospitalized with a higher goal range to prevent any hypoglycemia. PLAN FOR INPATIENT GLYCEMIC CONTROL: * Holding outpatient oral diabetes medications * Basal insulin with LANTUS 10 units SQ AM plus Lantus 0-5 units qHS (5 units if blood sugar greater than or equal to 180 mg/dL) * Correctional Insulin with NOVOLOG per scale ACHS * Goal Range: Low 140 mg/dL - High 180 mg/dL * Correction Factor: 30 mg/dL/unit * Nutritional / Prandial insulin per carb ratio of 1 unit per 10 grams CHO consumed * Please note that the plan above was derived based on current level of insulin resistance and hospital stress. These recommendations are appropriate for inpatient admission only. Plan of care upon discharge will need to be reassessed to avoid potential outpatient hypo/hyperglycemia. Thank you.
--- NOTE | 2016-07-14 17:50 | Hospitalist Progress Note ---
Hospitalist Progress Note Date of Service Jul 14, 2016. Subjective Pt evaluation today including: conversation w/ patient, chart review, lab review Pain: 0 patient lost her a few days earlier. No other complaints Objective Vital Signs Date Time Temp Pulse Resp B/P Pulse Ox O2 Delivery O2 Flow Rate FiO2 07/14/16 17:34 Room Air 07/14/16 15:06 36.8 77 20 131/84 95 Room Air 07/14/16 13:00 Room Air 07/14/16 12:54 37.0 88 16 116/75 92 Room Air 07/14/16 12:46 37.4 90 20 95 07/14/16 12:00 Room Air 07/14/16 11:33 37.4 99 20 137/89 95 Room Air 07/14/16 08:00 Room Air 07/14/16 07:28 37.2 106 20 102/91 94 Room Air 07/14/16 04:17 137/86 07/14/16 04:00 95 Room Air 07/14/16 02:50 37.2 83 18 151/108 95 Room Air 07/14/16 01:08 37.1 82 20 109/58 95 Room Air 07/14/16 00:15 85 20 129/75 95 Room Air 07/13/16 23:50 78 24 131/66 96 Room Air 07/13/16 23:01 86 25 131/66 96 Room Air 07/13/16 22:37 77 21 96 Room Air 07/13/16 22:07 125 18 07/13/16 21:37 82 24 96 Room Air 07/13/16 21:14 86 25 134/81 96 Room Air 07/13/16 21:10 96 Room Air 07/13/16 21:07 86 07/13/16 20:41 36.5 111 18 134/81 98 Room Air Physical Exam General Appearance: no apparent distress Eyes: normal inspection ENT: normal ENT inspection, hearing grossly normal Neck: trachea midline Respiratory/Chest: lungs clear Cardiovascular: regular rate, rhythm Abdomen: normal bowel sounds, non tender, soft Neurologic/Psychiatric: alert Laboratory Results Last 24 Hours Test 07/13/16 20:57 07/13/16 21:11 07/13/16 21:36 07/13/16 23:44 Bedside Glucose 339 mg/dl 305 mg/dl White Blood Count 8.62 K/uL Red Blood Count 4.05 M/uL Hemoglobin 12.5 g/dL Hematocrit 34.9 % Mean Corpuscular Volume 86.2 fL Mean Corpuscular Hemoglobin 30.9 pg Mean Corpuscular Hemoglobin Concent 35.8 g/dl Platelet Count 302 K/uL Mean Platelet Volume 10.0 fL Neutrophils (%) (Auto) 61.4 % Lymphocytes (%) (Auto) 26.5 % Monocytes (%) (Auto) 8.9 % Eosinophils (%) (Auto) 2.8 % Basophils (%) (Auto) 0.3 % Neutrophils # (Auto) 5.29 K/uL Lymphocytes # (Auto) 2.28 K/uL Monocytes # (Auto) 0.77 K/uL Eosinophils # (Auto) 0.24 K/uL Basophils # (Auto) 0.03 K/uL RDW Standard Deviation 41.5 fL RDW Coefficient of Variation 12.9 % Immature Granulocyte % (Auto) 0.1 % Immature Granulocyte # (Auto) 0.01 K/uL Venous Blood pH 7.50 Venous Blood Partial Pressure CO2 48 mmHg Venous Blood Partial Pressure O2 24 mmHg Venous Blood HCO3 37 mmol/L Venous Blood Oxygen Saturation < 60.0 % Venous Blood Base Excess 12.0 mmol/L Sodium Level 121 mmol/L Potassium Level 4.4 mmol/L Chloride Level 84 mmol/L Carbon Dioxide Level 30 mmol/L Anion Gap 7.0 mmol/L 17.0 mmol/L Blood Urea Nitrogen 28 mg/dl Creatinine 1.40 mg/dl Estimated GFR () 48.9 Estimated GFR (Non- 42.2 BUN/Creatinine Ratio 19.9 Random Glucose 349 mg/dl Estimated Average Glucose 237 mg/dl Hemoglobin A1c 9.9 % Calcium Level 9.0 mg/dl Magnesium Level 1.9 mg/dl Total Bilirubin 0.4 mg/dl Direct Bilirubin 0.1 mg/dl Aspartate Amino Transf (AST/SGOT) 25 U/L Alanine Aminotransferase (ALT/SGPT) 29 U/L Alkaline Phosphatase 57 U/L Total Creatine Kinase 255 U/L Creatine Kinase MB 1.4 ng/ml Creatine Kinase MB Ratio 0.5 Troponin I < 0.015 ng/ml Total Protein 6.5 gm/dl Albumin 3.4 gm/dl Beta-Hydroxybutyric Acid 1.01 mg/dL Thyroid Stimulating Hormone (TSH) 2.220 uIu/ml Bedside Hemoglobin 13.6 g/dl Bedside Hematocrit 40 % Bedside Sodium 121 mEq/L Bedside Potassium 4.5 mEq/L Bedside Chloride 80 mEq/L Bedside Total CO2 29 mEq/l Bedside Blood Urea Nitrogen 28 mg/dl Bedside Creatinine 1.2 mg/dl Bedside Glucose (other) 353 mg/dl Bedside Ionized Calcium (Bailee) 1.10 mmol/l Test 07/14/16 00:55 07/14/16 02:49 07/14/16 05:25 07/14/16 06:46 Bedside Glucose 161 mg/dl 157 mg/dl 198 mg/dl White Blood Count 10.04 K/uL Red Blood Count 3.75 M/uL Hemoglobin 12.3 g/dL Hematocrit 32.8 % Mean Corpuscular Volume 87.5 fL Mean Corpuscular Hemoglobin 32.8 pg Mean Corpuscular Hemoglobin Concent 37.5 g/dl Platelet Count 294 K/uL Mean Platelet Volume 10.6 fL Neutrophils (%) (Auto) 66.6 % Lymphocytes (%) (Auto) 19.7 % Monocytes (%) (Auto) 8.1 % Eosinophils (%) (Auto) 5.1 % Basophils (%) (Auto) 0.3 % Neutrophils # (Auto) 6.69 K/uL Lymphocytes # (Auto) 1.98 K/uL Monocytes # (Auto) 0.81 K/uL Eosinophils # (Auto) 0.51 K/uL Basophils # (Auto) 0.03 K/uL RDW Standard Deviation 42.6 fL RDW Coefficient of Variation 13.1 % Immature Granulocyte % (Auto) 0.2 % Immature Granulocyte # (Auto) 0.02 K/uL Sodium Level 128 mmol/L Potassium Level 4.0 mmol/L Chloride Level 92 mmol/L Carbon Dioxide Level 27 mmol/L Anion Gap 9.0 mmol/L Blood Urea Nitrogen 25 mg/dl Creatinine 1.10 mg/dl Est Creatinine Clear Calc Drug Dose 41.5 ml/min Estimated GFR () 65.5 Estimated GFR (Non- 56.5 BUN/Creatinine Ratio 23.1 Random Glucose 202 mg/dl Calcium Level 8.4 mg/dl Magnesium Level 1.8 mg/dl Hepatitis C Antibody Screen NEG Test 07/14/16 11:31 Bedside Glucose 258 mg/dl Assessment and Plan (1) Fall Assessment & Plan: will need short term rehab will consult pt/ot (2) Hyperglycemia Assessment & Plan: pharmacy input appreciated (3) Hypomagnesemia (4) Poorly controlled diabetes mellitus (5) Dehydration Discharge planning: retirement facility
[2016-07-14] MEDS ORDERED: INSULIN GLARGINE SOLOSTAR 100 UNITS/ML 3 ML PEN SC SCH (21:00)
[2016-07-14] MEDS: BENZTROPINE MESYLATE 1 MG TAB PO SCH (21:00)
[2016-07-15 00:20] VITALS: BP 116/75; PULSE 77; TEMP 36.8; O2SAT 95
[2016-07-15] MEDS: SODIUM CHLORIDE 0.9% 1000ML 1,000 ML IV SCH (06:08)
[2016-07-15 06:39] LABS: HEMATOCRIT 30.2 % (37-47); MEAN CELL VOLUME 89.6 fL (80-100); MEAN CORPUSCULAR HEMOGLOBIN 31.5 pg (25-34); MEAN CORPUSCULAR HGB CONC 35.1 g/dl (32-36); MEAN PLATELET VOLUME 10.3 fL (7.4-10.4); PLATELET COUNT 264 K/uL (130-400); RED BLOOD COUNT 3.37 M/uL (4.2-5.4); WHITE BLOOD COUNT 7.19 K/uL (4.8-10.8)
[2016-07-15 07:04] VITALS: BP 135/79; PULSE 56; TEMP 36.7; O2SAT 98
[2016-07-15 07:10] LABS: BUN/CREATININE RATIO 19.9 (10-20); CALCIUM 8.3 mg/dl (8.5-10.1); CREATININE 1.1 mg/dl (0.60-1.20); POTASSIUM 4.2 mmol/L (3.5-5.1)
[2016-07-15] MEDS: NYSTATIN OINT 15 GM TUBE EXT SCH ×3 (07:54→18:01)
[2016-07-15] MEDS: INSULIN ASPART 100 UNITS/ML 3 ML PEN SC SCH ×4 (07:58→20:50)
[2016-07-15] MEDS: INSULIN GLARGINE SOLOSTAR 100 UNITS/ML 3 ML PEN SC SCH (07:59)
[2016-07-15 08:32] VITALS: BP 103/66; PULSE 75
[2016-07-15] MEDS: LISINOPRIL 2.5 MG TAB PO SCH ×2 (09:05→21:25)
[2016-07-15] MEDS: METOPROLOL SUCC 25MG EXT REL TAB PO SCH ×2 (09:05→21:25)
[2016-07-15] MEDS: RANITIDINE HCL 150 MG TAB PO SCH ×2 (09:05→21:25)
[2016-07-15] MEDS: BuPROPion SR 100 MG TABCR PO SCH (09:05)
[2016-07-15] MEDS: SODIUM CHLORIDE 1 GM TAB PO SCH ×2 (09:05→21:24)
[2016-07-15] MEDS: MAGNESIUM OXIDE 400 MG TAB PO SCH ×3 (09:06→21:24)
--- NOTE | 2016-07-15 10:19 | Hospitalist Progress Note ---
Hospitalist Progress Note Date of Service Jul 15, 2016. Subjective Pt evaluation today including: conversation w/ patient Pain: 0 patient states she has to go to [facility] for rehab All Other Systems: Reviewed and Negative Medications Medications (Trade) Dose Ordered Sig/Jeremias Route Start Time Stop Time Status Last Admin Dose Admin Benztropine Mesylate (Cogentin Tab) 1 mg HS PO 07/14/16 21:00 08/13/16 20:59 07/14/16 21:00 1 MG Insulin Glargine (Lantus Solostar Pen) 10 unit DAILY SC 07/15/16 09:00 08/14/16 08:59 07/15/16 07:59 10 UNIT Objective Vital Signs Date Time Temp Pulse Resp B/P Pulse Ox O2 Delivery O2 Flow Rate FiO2 07/15/16 08:32 75 103/66 07/15/16 08:10 Room Air 07/15/16 07:04 36.7 56 20 135/79 98 Room Air 07/15/16 00:20 36.8 77 18 116/75 95 Room Air 07/15/16 00:00 Room Air 07/14/16 17:34 Room Air 07/14/16 15:06 36.8 77 20 131/84 95 Room Air 07/14/16 13:00 Room Air 07/14/16 12:54 37.0 88 16 116/75 92 Room Air 07/14/16 12:46 37.4 90 20 95 07/14/16 12:00 Room Air 07/14/16 11:33 37.4 99 20 137/89 95 Room Air Physical Exam General Appearance: WD/WN, no apparent distress Eyes: normal inspection ENT: hearing grossly normal Neck: trachea midline Respiratory/Chest: lungs clear Cardiovascular: regular rate, rhythm Abdomen: normal bowel sounds Neurologic/Psychiatric: alert Laboratory Results Last 24 Hours Test 07/14/16 11:31 07/14/16 16:33 07/14/16 20:54 07/15/16 06:05 Bedside Glucose 258 mg/dl 117 mg/dl 211 mg/dl White Blood Count 7.19 K/uL Red Blood Count 3.37 M/uL Hemoglobin 10.6 g/dL Hematocrit 30.2 % Mean Corpuscular Volume 89.6 fL Mean Corpuscular Hemoglobin 31.5 pg Mean Corpuscular Hemoglobin Concent 35.1 g/dl RDW Standard Deviation 43.4 fL RDW Coefficient of Variation 13.2 % Platelet Count 264 K/uL Mean Platelet Volume 10.3 fL Sodium Level 132 mmol/L Potassium Level 4.2 mmol/L Chloride Level 97 mmol/L Carbon Dioxide Level 30 mmol/L Anion Gap 5.0 mmol/L Blood Urea Nitrogen 22 mg/dl Creatinine 1.10 mg/dl Est Creatinine Clear Calc Drug Dose 41.5 ml/min Estimated GFR () 65.5 Estimated GFR (Non- 56.5 BUN/Creatinine Ratio 19.9 Random Glucose 156 mg/dl Calcium Level 8.3 mg/dl Test 07/15/16 07:33 Bedside Glucose 160 mg/dl Assessment and Plan (1) Fall Assessment & Plan: Resolved will go for str once bed available (2) Hyperglycemia Assessment & Plan: resolved (3) Hypomagnesemia (4) Poorly controlled diabetes mellitus (5) Dehydration Assessment & Plan: resolved will heplock iv Discharge planning: alf facility
--- NOTE | 2016-07-15 13:59 | Pharmacy Progress Note ---
Glycemic Control: Progress Nt Date of Service Jul 15, 2016. Scope Glycemic Pharmacist consulted by Dr Mejias on 07/14/16 for glycemic control and to write orders per [facility] inpatient glycemic control protocol. Objective Accuchecks BSG (last 24hrs): Test 07/14/16 16:33 07/14/16 20:54 07/15/16 06:05 07/15/16 07:33 Bedside Glucose 117 mg/dl (70-90) 211 mg/dl (70-90) 160 mg/dl (70-90) Random Glucose 156 mg/dl (70-99) HbA1c: Test 07/13/16 21:11 Hemoglobin A1c 9.9 % (4.5-5.6) H Recent Pertinent Medications Outpatient Anti-diabetic Regimen: * Novolog 70/30 pre-mixed insulin 14 units with morning meal & 7 units with PM meal * Metformin 1,000mg PO BIDM The patient is currently receiving: * Basal insulin: Lantus 10 units every 24 hours given in the morning * Correctional Insulin: Novolog Correction per scale ACHS Goal Range: Low 140 mg/dL - High 180 mg/dL Correction Factor: 30 mg/dL/unit * Prandial insulin: Per carb ratio of 1 unit per 10 grams CHO consumed * Oral Agents: on hold for admissions Risk Factors for Insulin Resistance: * Minimal other than baseline poor control per elevated A1c Assessment & Plan ASSESSMENT: * Patient is currently receiving an average of ~22 units of insulin per day * 10 units of basal insulin * 12 units of prandial/correctional insulin * BSGs ranging 117 - 258mg/dl over the past 24hrs * Anticipating insulin regimen may need adjusted * AM Fasting BSG = 160mg/dl, this is above goal range but it is trending downwards from yesterday so hesitant to increase at this time * Post-prandial BSGs are elevated/BSGs rise throughout the day therefore CF/ CR may need tightened, however, BSG drops into goal range after large NovoLog bolus when BSG is elevated. Safer option would be to lower goal range for added CF insulin to be given when BSG above goal range * ADA & AACE recommend a goal blood sugar range 140-180 mg/dl for the majority of critically ill & non-critically ill patients. However, more stringent targets may be selected in individual cases. Will utilize more stringent goal of 110-140mg/dl based on patient age & comorbidities. PLAN FOR INPATIENT GLYCEMIC CONTROL: * Hold outpatient oral diabetes medications * Continue Basal insulin with LANTUS 10 units SQ Daily in AM * NovoLog per scale ACHS or Q6hrs while NPO * LOWER Goal Range: Low 110 mg/dL - High 140 mg/dL * Correction Factor: 30 mg/dL/unit * Nutritional / Prandial insulin per carb ratio of 1 unit per 10 grams CHO consumed * Please note that the plan above was derived based on current level of insulin resistance and hospital stress. These recommendations are appropriate for inpatient admission only. Plan of care upon discharge will need to be reassessed to avoid potential outpatient hypo/hyperglycemia. Thank you.
[2016-07-15 14:58] VITALS: BP 103/69; PULSE 71; TEMP 37.1; O2SAT 96
[2016-07-15 16:00] VITALS: O2SAT 96
[2016-07-15 21:20] VITALS: BP 119/75; PULSE 71
[2016-07-15] MEDS: BENZTROPINE MESYLATE 1 MG TAB PO SCH (21:24)
[2016-07-16 00:40] VITALS: BP 129/80; PULSE 84; TEMP 36.7; O2SAT 96
[2016-07-16 07:10] LABS: HEMATOCRIT 34.4 % (37-47); MEAN CORPUSCULAR HEMOGLOBIN 31.2 pg (25-34); MEAN CORPUSCULAR HGB CONC 34.3 g/dl (32-36); MEAN PLATELET VOLUME 10.5 fL (7.4-10.4); PLATELET COUNT 319 K/uL (130-400); RED BLOOD COUNT 3.78 M/uL (4.2-5.4); WHITE BLOOD COUNT 9.49 K/uL (4.8-10.8)
[2016-07-16 07:30] VITALS: BP 126/76; PULSE 72; TEMP 36.7; O2SAT 93
[2016-07-16 07:50] LABS: CALCIUM 8.4 mg/dl (8.5-10.1); CREATININE 1.1 mg/dl (0.60-1.20); POTASSIUM 4.2 mmol/L (3.5-5.1)
[2016-07-16] MEDS: RANITIDINE HCL 150 MG TAB PO SCH ×2 (08:22→21:47)
[2016-07-16] MEDS: BuPROPion SR 100 MG TABCR PO SCH (08:22)
[2016-07-16] MEDS: METOPROLOL SUCC 25MG EXT REL TAB PO SCH ×2 (08:22→21:48)
[2016-07-16] MEDS: SODIUM CHLORIDE 1 GM TAB PO SCH ×2 (08:23→21:47)
[2016-07-16] MEDS: MAGNESIUM OXIDE 400 MG TAB PO SCH ×3 (08:23→21:49)
[2016-07-16] MEDS: LISINOPRIL 2.5 MG TAB PO SCH ×2 (08:23→21:47)
[2016-07-16] MEDS: NYSTATIN OINT 15 GM TUBE EXT SCH ×3 (08:24→17:17)
[2016-07-16] MEDS: INSULIN GLARGINE SOLOSTAR 100 UNITS/ML 3 ML PEN SC SCH (08:26)
[2016-07-16] MEDS: INSULIN ASPART 100 UNITS/ML 3 ML PEN SC SCH ×4 (08:26→21:56)
[2016-07-16] MEDS ORDERED: METFORMIN HCL 500 MG TABCR PO ONE (08:45)
--- NOTE | 2016-07-16 12:33 | Pharmacy Progress Note ---
Glycemic Control: Progress Nt Date of Service Jul 16, 2016. Scope Glycemic Pharmacist consulted by Dr Mejias on 07/14/2016 for glycemic control and to write orders per [facility] inpatient glycemic control protocol. Objective Accuchecks BSG (last 24hrs): Test 07/15/16 16:39 07/15/16 20:09 07/15/16 21:34 07/15/16 22:00 Bedside Glucose 210 mg/dl (70-90) 102 mg/dl (70-90) 82 mg/dl (70-90) 73 mg/dl (70-90) Test 07/15/16 22:35 07/16/16 00:12 07/16/16 06:26 07/16/16 07:43 Bedside Glucose 87 mg/dl (70-90) 149 mg/dl (70-90) 189 mg/dl (70-90) Random Glucose 163 mg/dl (70-99) Test 07/16/16 11:12 Bedside Glucose 211 mg/dl (70-90) Laboratory Data (last 24hrs) Test 07/16/16 06:26 Anion Gap 8.0 mmol/L BUN/Creatinine Ratio 23.0 Blood Urea Nitrogen 25 mg/dl Creatinine 1.10 mg/dl Potassium Level 4.2 mmol/L Sodium Level 132 mmol/L White Blood Count 9.49 K/uL HbA1c: Test 07/13/16 21:11 Hemoglobin A1c 9.9 % (4.5-5.6) H Recent Pertinent Medications Outpatient Anti-diabetic Regimen: * Novolog 70/30 14 units in AM and 7 units in PM (unsure when last taken) Risk Factors for Insulin Resistance: * Diet: type 2 diabetic diet Assessment & Plan ASSESSMENT: * ADA & AACE recommend a goal blood sugar range 140-180 mg/dl for the majority of critically ill & non-critically ill patients. However, more stringent targets may be selected in individual cases. 07/14/2016 * Ms Jimenez was admitted overnight after a fall plus emesis. The patient is a poor historian and therefore it is unknown when she last took her insulin or what dose was taken. * She received a 1 time dose of Regular insulin 10 units IV around 2300 and then Lantus 5 units at 0115. Her blood sugars have decreased nicely from 349 mg/ dL on admission to 198 mg/dL this morning. * The patient's blood sugars appear reasonably controlled as an outpatient therefore will give Lantus 5 units x 1 to make Lantus 10 units this morning and start Lantus 10 units every morning (mimics a total basal dose of 15 units daily with a small reduction for hospital admission) plus a Lantus dose of 0-5 units qHS if necessary. A stricter carbohydrate ratio and correction factor are being utilized to see how the patient responds while hospitalized with a higher goal range to prevent any hypoglycemia. 07/16/2016 * Ms Jimenez had lower blood sugars overnight last night. She had blood sugars of 102 mg/dL --> 82 mg/dL (treated with OJ, recheck in 15 mins) --> 76 mg/dL ( reid aidan, PB, milk, , recheck in 15 mins) --> 87 mg/dL (recheck in 15 mins) --> 163 mg/dL * The patient's fasting blood sugars have remained steady around 170 mg/dL. The lower blood sugars indicate that the correction factor and carbohydrate ratio need to be loosened. The goal range will be tightened to insure higher blood sugars do not happen. * Since the patient is preparing for discharge will restart metformin. The effects of this should be seen in several days. PLAN FOR INPATIENT GLYCEMIC CONTROL: * Holding outpatient oral diabetes medications * Basal insulin with LANTUS 10 units SQ AM * Correctional Insulin with NOVOLOG per scale ACHS * TIGHTEN Goal Range: Low 110 mg/dL - High 140 mg/dL * TIGHTEN Correction Factor: 40 mg/dL/unit * TIGHTEN Nutritional / Prandial insulin per carb ratio of 1 unit per 13 grams CHO consumed * Please note that the plan above was derived based on current level of insulin resistance and hospital stress. These recommendations are appropriate for inpatient admission only. Plan of care upon discharge will need to be reassessed to avoid potential outpatient hypo/hyperglycemia. Thank you.
[2016-07-16 15:30] VITALS: BP 112/72; PULSE 126; TEMP 37; O2SAT 94
[2016-07-16 16:00] VITALS: O2SAT 92
[2016-07-16 16:30] VITALS: PULSE 76
[2016-07-16] MEDS: METFORMIN HCL 500 MG TABCR PO SCH (17:17)
--- NOTE | 2016-07-16 20:23 | Hospitalist Progress Note ---
Hospitalist Progress Note Date of Service Jul 16, 2016. Subjective Pt evaluation today including: conversation w/ patient, conversation w/ family , physical exam Pain: 0 no complaints got her iv out All Other Systems: Reviewed and Negative Objective Vital Signs Date Time Temp Pulse Resp B/P Pulse Ox O2 Delivery O2 Flow Rate FiO2 07/16/16 16:30 76 07/16/16 16:00 92 Room Air 07/16/16 15:30 37.0 126 20 112/72 94 Room Air 07/16/16 08:00 Room Air 07/16/16 07:30 36.7 72 16 126/76 93 Room Air 07/16/16 00:40 36.7 84 20 129/80 96 Room Air 07/16/16 00:00 Room Air 07/15/16 21:20 71 119/75 Physical Exam General Appearance: no apparent distress Eyes: sclerae normal Neck: trachea midline Respiratory/Chest: lungs clear, normal breath sounds Cardiovascular: regular rate, rhythm Abdomen: normal bowel sounds Laboratory Results Last 24 Hours Test 07/15/16 21:34 07/15/16 22:00 07/15/16 22:35 07/16/16 00:12 Bedside Glucose 82 mg/dl 73 mg/dl 87 mg/dl 149 mg/dl Test 07/16/16 06:26 07/16/16 07:43 07/16/16 11:12 07/16/16 16:23 White Blood Count 9.49 K/uL Red Blood Count 3.78 M/uL Hemoglobin 11.8 g/dL Hematocrit 34.4 % Mean Corpuscular Volume 91.0 fL Mean Corpuscular Hemoglobin 31.2 pg Mean Corpuscular Hemoglobin Concent 34.3 g/dl RDW Standard Deviation 43.7 fL RDW Coefficient of Variation 13.1 % Platelet Count 319 K/uL Mean Platelet Volume 10.5 fL Sodium Level 132 mmol/L Potassium Level 4.2 mmol/L Chloride Level 95 mmol/L Carbon Dioxide Level 29 mmol/L Anion Gap 8.0 mmol/L Blood Urea Nitrogen 25 mg/dl Creatinine 1.10 mg/dl Est Creatinine Clear Calc Drug Dose 41.5 ml/min Estimated GFR () 65.5 Estimated GFR (Non- 56.5 BUN/Creatinine Ratio 23.0 Random Glucose 163 mg/dl Calcium Level 8.4 mg/dl Bedside Glucose 189 mg/dl 211 mg/dl 81 mg/dl Assessment and Plan (1) Fall Assessment & Plan: resolved patient with no complaints will need placement Psychiatry consulted secondary to target status (2) Hyperglycemia (3) Hypomagnesemia (4) Poorly controlled diabetes mellitus (5) Dehydration Assessment & Plan: resolved
[2016-07-16] MEDS: BENZTROPINE MESYLATE 1 MG TAB PO SCH (21:48)
[2016-07-16] MEDS ORDERED: NURSING VERBAL MED ORDER ONE (23:00)
[2016-07-16] MEDS ORDERED: PANTOprazole SOD 40 MG TAB PO STA (23:03)
[2016-07-16 23:12] VITALS: BP 135/82; PULSE 84; TEMP 36.7; O2SAT 95
[2016-07-17] MEDS: METFORMIN HCL 500 MG TABCR PO SCH ×2 (07:55→17:19)
[2016-07-17] MEDS: NYSTATIN OINT 15 GM TUBE EXT SCH ×3 (07:55→15:40)
[2016-07-17] MEDS: METOPROLOL SUCC 25MG EXT REL TAB PO SCH ×2 (07:56→21:29)
[2016-07-17] MEDS: SODIUM CHLORIDE 1 GM TAB PO SCH ×2 (07:56→21:30)
[2016-07-17] MEDS: MAGNESIUM OXIDE 400 MG TAB PO SCH ×3 (07:56→21:30)
[2016-07-17] MEDS: LISINOPRIL 2.5 MG TAB PO SCH ×2 (07:57→21:32)
[2016-07-17] MEDS: BuPROPion SR 100 MG TABCR PO SCH (07:57)
[2016-07-17] MEDS: RANITIDINE HCL 150 MG TAB PO SCH ×2 (07:57→21:29)
[2016-07-17] MEDS: INSULIN ASPART 100 UNITS/ML 3 ML PEN SC SCH ×4 (08:01→21:34)
[2016-07-17] MEDS: INSULIN GLARGINE SOLOSTAR 100 UNITS/ML 3 ML PEN SC SCH (08:01)
[2016-07-17 08:14] VITALS: BP 132/76; PULSE 80; TEMP 37.1; O2SAT 97
--- NOTE | 2016-07-17 09:56 | Pharmacy Progress Note ---
Glycemic: Assessment & Plan Date of Service Jul 17, 2016. Assessment & Plan Recent Pertinent Medications Outpatient Anti-diabetic Regimen: * NovoLog 70/30 mixed insulin * 14 units in AM * 7 units in PM * metformin ER 1000mg PO BID Assessment & Plan ASSESSMENT: * ADA & AACE recommend a goal blood sugar range 140-180 mg/dl for the majority of critically ill & non-critically ill patients. However, more stringent targets may be selected in individual cases. 07/14/2016 * Ms Jimenez was admitted overnight after a fall plus emesis. The patient is a poor historian and therefore it is unknown when she last took her insulin or what dose was taken. * She received a 1 time dose of Regular insulin 10 units IV around 2300 and then Lantus 5 units at 0115. Her blood sugars have decreased nicely from 349 mg/ dL on admission to 198 mg/dL this morning. * The patient's blood sugars appear reasonably controlled as an outpatient therefore will give Lantus 5 units x 1 to make Lantus 10 units this morning and start Lantus 10 units every morning (mimics a total basal dose of 15 units daily with a small reduction for hospital admission) plus a Lantus dose of 0-5 units qHS if necessary. A stricter carbohydrate ratio and correction factor are being utilized to see how the patient responds while hospitalized with a higher goal range to prevent any hypoglycemia. 07/16/2016 * Ms Jimenez had lower blood sugars overnight last night. She had blood sugars of 102 mg/dL --> 82 mg/dL (treated with OJ, recheck in 15 mins) --> 76 mg/dL ( OLLIE menezes, milk, , recheck in 15 mins) --> 87 mg/dL (recheck in 15 mins) --> 163 mg/dL * The patient's fasting blood sugars have remained steady around 170 mg/dL. The lower blood sugars indicate that the correction factor and carbohydrate ratio need to be loosened. The goal range will be tightened to insure higher blood sugars do not happen. * Since the patient is preparing for discharge will restart metformin. The effects of this should be seen in several days. 07/17/16 * BSGs well controlled with current inpatient regimen (basal insulin 10 units, NovoLog, and Metformin) * pre-dinner BSG below goal (81mg/dL) * remove carb ratio at this time * Fasting BSG above 140mg/dL * continue basal insulin in addition to metformin and correctional NovoLog * May consider increasing metformin to home dosing PLAN FOR INPATIENT GLYCEMIC CONTROL: * Basal insulin with LANTUS 10 units SQ AM * Correctional Insulin with NOVOLOG per scale ACHS * Goal Range: Low 110 mg/dL - High 140 mg/dL * Correction Factor: 40 mg/dL/unit * Carb ratio: forgo at this time * Oral mediation with Metformin ER 500mg PO BID with meals * may consider increasing to 1000mg PO BID with meals at or before discharge * A1c added to discharge instructions RECOMMENDATIONS FOR DISCHARGEE: * Likely, Ms Jimenez can resume home regimen at discharge with mixed 70/30 insulin. Would begin 24 hours after last Lantus to avoid duplicate basal insulin. * Please note that the plan above was derived based on current level of insulin resistance and hospital stress. These recommendations are appropriate for inpatient admission only. Plan of care upon discharge will need to be reassessed to avoid potential outpatient hypo/hyperglycemia. Thank you.
[2016-07-17 15:30] VITALS: BP 116/74; PULSE 76; TEMP 37; O2SAT 96
--- NOTE | 2016-07-17 16:20 | Hospitalist Progress Note ---
Hospitalist Progress Note Date of Service Jul 17, 2016. Subjective Pt evaluation today including: conversation w/ patient patient with no complaints going to tomorrow All Other Systems: Reviewed and Negative Medications Medications (Trade) Dose Ordered Sig/Jeremias Route Start Time Stop Time Status Last Admin Dose Admin Metformin HCl (Glucophage Extended Rel Tab) 500 mg BIDM PO 07/16/16 17:00 07/17/16 15:06 DC 07/17/16 07:55 500 MG Pantoprazole Sodium (Protonix Tab) 40 mg NOW STAT PO 07/16/16 23:03 07/16/16 23:04 DC 07/16/16 23:41 40 MG Objective Vital Signs Date Time Temp Pulse Resp B/P Pulse Ox O2 Delivery O2 Flow Rate FiO2 07/17/16 15:30 37.0 76 18 116/74 96 Room Air 07/17/16 08:14 37.1 80 18 132/76 97 Room Air 07/17/16 08:00 Room Air 07/17/16 00:00 Room Air 07/16/16 23:12 36.7 84 16 135/82 95 Room Air 07/16/16 16:30 76 Physical Exam General Appearance: no apparent distress Eyes: normal inspection ENT: hearing grossly normal Neck: trachea midline Respiratory/Chest: lungs clear Cardiovascular: regular rate, rhythm Abdomen: normal bowel sounds Extremities: normal range of motion Laboratory Results Last 24 Hours Test 07/16/16 16:23 07/16/16 21:41 07/17/16 07:32 07/17/16 11:26 Bedside Glucose 81 mg/dl 141 mg/dl 158 mg/dl 234 mg/dl Assessment and Plan (1) Fall Assessment & Plan: resolved (2) Hyperglycemia Assessment & Plan: resolved will need str (3) Hypomagnesemia (4) Poorly controlled diabetes mellitus Assessment & Plan: pharmacy input appreciated (5) Dehydration
[2016-07-17] MEDS: BENZTROPINE MESYLATE 1 MG TAB PO SCH (21:31)
[2016-07-17 22:59] VITALS: BP 123/71; PULSE 74; TEMP 36.4; O2SAT 96
[2016-07-18 08:15] VITALS: BP 138/84; PULSE 71; TEMP 36.7; O2SAT 96
[2016-07-18] MEDS ORDERED: NYSO15 EXT (08:18)
[2016-07-18] MEDS: INSULIN ASPART 100 UNITS/ML 3 ML PEN SC SCH (08:20)
--- NOTE | 2016-07-18 08:21 | Discharge Instructions ---
Discharge Instructions Date of Service Jul 18, 2016. Admission Reason for Admission: Hyperglycemia Discharge Discharge Diagnosis / Problem: Fall Diabetes poorly controlled Discharge Goals Goal(s): Improve function Activity Recommendations Activity Limitations: resume your previous activity . Instructions / Follow-Up Instructions / Follow-Up primary care physician 2 weeks Current Hospital Diet Patient's current hospital diet: Diabetes Type 2 Diet Discharge Diet Recommended Diet: Diabetes Type 2 Diet Pending Studies Studies pending at discharge: no Laboratory Results Hemoglobin A1c Test 07/13/16 21:11 Range/Units Estimated Average Glucose 237 mg/dl Hemoglobin A1c 9.9 H 4.5-5.6 % Medical Emergencies . Who to Call and When: Medical Emergencies: If at any time you feel your situation is an emergency, please call 911 immediately. . Non-Emergent Contact Non-Emergency issues call your: Primary Care Provider . Past History Medical & Surgical History: (1) Diabetes mellitus (2) Bipolar disorder (3) Fall . "Provider Documentation" section prepared by Andrew Paz. . VTE Core Measure Inpt VTE Proph given/why not?: SCD's
[2016-07-18] MEDS: LISINOPRIL 2.5 MG TAB PO SCH (08:23)
[2016-07-18] MEDS: NYSTATIN OINT 15 GM TUBE EXT SCH (08:23)
[2016-07-18] MEDS: METOPROLOL SUCC 25MG EXT REL TAB PO SCH (08:23)
[2016-07-18] MEDS: BuPROPion SR 100 MG TABCR PO SCH (08:23)
[2016-07-18] MEDS: RANITIDINE HCL 150 MG TAB PO SCH (08:23)
[2016-07-18] MEDS: METFORMIN HCL 500 MG TABCR PO SCH (08:24)
[2016-07-18] MEDS: MAGNESIUM OXIDE 400 MG TAB PO SCH (08:24)
[2016-07-18] MEDS: SODIUM CHLORIDE 1 GM TAB PO SCH (08:24)
[2016-07-18] MEDS: INSULIN GLARGINE SOLOSTAR 100 UNITS/ML 3 ML PEN SC SCH (08:29)
[2016-07-18 08:58] VITALS: BP 138/84; PULSE 71; TEMP 36.7; O2SAT 96
--- NOTE | 2016-07-22 16:00 | DISCHARGE SUMMARY ---
Please see dictated H\T\P for full details. HISTORY OF PRESENT ILLNESS: A 56-year-old with history of hypertension, diabetes, bipolar disease, Parkinson disease, who fell, hitting her head on a concrete floor. CAT scan was performed and it showed no acute intracranial abnormality. There was a left posterior parietal scalp contusion/hematoma. No depressed calvarial fracture is seen. She was therefore brought into the hospital for further care. She was discovered to also have acute kidney injury and her who was her caregiver had . She therefore was seen by nephrology social worker and arrangements were made for placement at [facility]. The patient's diabetes was managed by pharmacy. Psychiatric illnesses were deemed to be stable. Case was discussed with her sister during her admission and the patient was deemed stable for discharge on 07/18. Time spent reviewing the chart, discussion with the patient on the day of discharge is 31 minutes. Acute kidney injury had resolved. Creatinine was 1.1 on 07/16. MTDD
--- NOTE | 2016-07-28 11:49 | Psychiatric Consultation ---
Psychiatric Consultation Date of Service: 07/16 Consult requested to complete TARGET process R/T patient with a mental health diagnosis. Obtained patient's OP records from her current psychiatrist which were scanned into the chart for this purpose. Social service made aware, who agreed that this would suffice for the TARGET process. No consult required.
== END 2016-07-18 10:20 | DRG 683 ==
LOC: ENRESERVTM → ENRESERVDT → C.EDB 20:38 → C.2E 23:04 → C.MS2W 07-14 10:50 → EDBEDREQ 07-14 11:04
PROVIDERS: ADMIT Family Medicine; ATTEND Internal Medicine
DX: N17.9 Acute kidney failure, unspecified (principal); E87.1 Hypo-osmolality and hyponatremia; E83.42 Hypomagnesemia; E11.65 Type 2 diabetes mellitus with hyperglycemia; S00.03XA Contusion of scalp, initial encounter; W01.198A Fall on same level from slipping, tripping and stumbling with subsequent striking against other object, initial encounter; I10 Essential (primary) hypertension; F31.9 Bipolar disorder, unspecified; G20 Parkinson's disease; F79 Unspecified intellectual disabilities; Z63.4 Disappearance and death of family member; Z79.4 Long term (current) use of insulin; Z79.84 Long term (current) use of oral hypoglycemic drugs; Z79.899 Other long term (current) drug therapy; Z83.3 Family history of diabetes mellitus; Z82.49 Family history of ischemic heart disease and other diseases of the circulatory system

== ENCOUNTER → 2016-07-23 | Outpatient (CLI) | payer OTHER ==
[~2016-07-23] MED LIST changes: +NYSO15 EXT; -RISP4TAB2 PO
[2016-07-23 09:34] LABS: BLOOD UREA NITROGEN 20 mg/dl (7-18); CARBON DIOXIDE 30 mmol/L (21-32); CHLORIDE 84 mmol/L (98-107); CREATININE 0.94 mg/dl (0.60-1.20); GLUCOSE 119 mg/dl (70-99); POTASSIUM 4.4 mmol/L (3.5-5.1); SODIUM 123 mmol/L (136-145)
[2016-07-23 09:53] LABS: CALCIUM 9.4 mg/dl (8.5-10.1)
== END ==
LOC: C.LABCC 07:45
PROVIDERS: ATTEND Internal Medicine
DX: E87.1 Hypo-osmolality and hyponatremia (principal)

== ENCOUNTER → 2016-07-28 | Outpatient (CLI) | payer OTHER ==
[2016-07-28 08:29] LABS: BLOOD UREA NITROGEN 18 mg/dl (7-18); BUN/CREATININE RATIO 19.2 (10-20); CARBON DIOXIDE 32 mmol/L (21-32); CHLORIDE 90 mmol/L (98-107); CREATININE 0.91 mg/dl (0.60-1.20); GLUCOSE 124 mg/dl (70-99); POTASSIUM 4.1 mmol/L (3.5-5.1); SODIUM 130 mmol/L (136-145)
[2016-07-28 08:43] LABS: CALCIUM 9.5 mg/dl (8.5-10.1)
== END ==
LOC: C.LABCC 07:42
PROVIDERS: ATTEND Internal Medicine
DX: E87.1 Hypo-osmolality and hyponatremia (principal)